=== PATIENT | male | born 1965 | race Asian ===

== ENCOUNTER → 2020-10-11 | Outpatient (CLI) | payer BC ==
[~2020-10-11] VITALS: Ht 175.3 cm; Wt 88.3 kg
[~2020-10-11] MED LIST: CIALIS5 MG PO; DEPO-TESTOS200 MG/M1 IM; FLOMAX 0.40.4 MG/CAP PO; MELOXICAM; NO HOME MEDICATIONS; PERCOCET 325 MG1 TA2 PO; PERCOCET 5/321 UDTAB PO; PROTONIX20 MG PO
[2020-10-11 06:48] VITALS: BP 126/77; PULSE 91
[2020-10-11 08:10] VITALS: BP 121/66; PULSE 75
== END ==
LOC: COL.RAD 10-01 07:00
DX: M51.26 Other intervertebral disc displacement, lumbar region (principal)
CPT/HCPCS: J3301